=== PATIENT | female | born 1940 | race Caucasian/White ===

== ENCOUNTER 2017-12-05 06:59 | Day surgery (SDC) | payer MEDICARE ==
[2017-11-30 15:52] VITALS: BMI 30.1
[~2017-12-05 06:59] MED LIST: LACTATED RINGERS 1,000 ML IV SCH
[2017-12-05 07:42] VITALS: TEMP 98
[2017-12-05 07:42] LABS: Glucose,Whole Blood 145 mg/dL (75-99)
[2017-12-05] MEDS ORDERED: LIDOCAINE 1% INJ 10MG/ML (20 ML MDV) ONE (08:24)
[2017-12-05] MEDS ORDERED: PROPOFOL 10 MG/ML 20 ML VIAL IV ONE (08:24)
--- NOTE | 2017-12-05 09:01 | P.PCN ---
Date of Procedure: 12/05/17 Procedure(s) Performed: Procedure: Total colonoscopy. Preoperative diagnosis: Screening for neoplasia, patient has family history of colon cancer. Postoperative diagnosis: Sigmoid diverticulosis with no evidence of acute diverticulitis, strictures, polyps or cancer. Preparation: HalfLytely prep. Sedation: Was provided by anesthesia. Brief clinical history: The patient is a 77-year-old female who is scheduled for this evaluation for screening for neoplasia because of family history of colon cancer in her father. Her last exam was around 5 years ago. She has no abdominal complaints, bleeding or anemia. Procedure: With the patient on her left lateral decubitus position and after informed consent and adequate sedation, the perianal area was inspected and it did not show any fissures or fistulas. There were no masses felt on digital rectal examination. The Olympus CFQ 160L video colonoscope was then inserted in the rectum in the usual fashion and advanced to the cecum. There were multiple diverticular orifices seen scattered in the sigmoid but there was no evidence of acute diverticulitis or strictures. No polyps or tumors were seen. The mucosa appeared healthy. I retroflexed the endoscope in the rectum before the endoscope was withdrawn. The patient tolerated the procedure well. Plan: The patient was reassured. Discussed dietary measures. She will follow- up with you as planned and consideration can be given for repeat exam in 5 years depending on her overall health at that time. She will discuss that with you.
[2017-12-05 09:03] VITALS: RESP 18
[2017-12-05 09:14] VITALS: BP 142/61; PULSE 69
== END 2017-12-05 09:59 | disposition home or self-care (01) ==
LOC: ORWHC2ENDO 06:59
DX: Z12.11 Encounter for screening for malignant neoplasm of colon (principal); K57.30 Diverticulosis of large intestine without perforation or abscess without bleeding; I25.10 Atherosclerotic heart disease of native coronary artery without angina pectoris; E78.5 Hyperlipidemia, unspecified; E11.42 Type 2 diabetes mellitus with diabetic polyneuropathy; E07.9 Disorder of thyroid, unspecified; Z80.0 Family history of malignant neoplasm of digestive organs; Z79.82 Long term (current) use of aspirin; Z79.899 Other long term (current) drug therapy; Z88.2 Allergy status to sulfonamides; Z79.890 Hormone replacement therapy
CPT/HCPCS: J2001; J2704; G0105; 45378